=== PATIENT | male | born 1975 | race Caucasian/White ===

== ENCOUNTER 2020-12-21 13:11 | Emergency (ER) | payer OTHER ==
[2020-12-21 13:16] VITALS: BP 146/88
== END 2020-12-21 16:04 | disposition left against medical advice (07) ==
LOC: ED 13:11
DX: Z53.21 Procedure and treatment not carried out due to patient leaving prior to being seen by health care provider (principal)

== ENCOUNTER 2021-01-18 08:03 | Outpatient (CLI) | payer OTHER ==
--- NOTE | 2021-01-18 16:41 | MRI Report ---
PROCEDURE: Lumbar Spine W/O INDICATIONS: LOW BACK PAIN TECHNIQUE: Noncontrast sagittal T1 spin echo and T2 fast echo, sagittal STIR, axial T1 and T2 fast spin echo thr ough the lumbar spine. In cases with scoliosis, additional coronal T2 fast spin echo may be performe d. COMPARISON: None. FINDINGS: Image quality: Excellent. Alignment and Curvature: No plain films are available for comparison. Thus, for numbering purposes, 5 lumbar type vertebral bodies will be presumed for the current report. This should be confirmed with plain film correlation prior to any lumbar spinal intervention. There is loss of normal lumbar lordo sis. Bone Marrow: Marrow is of normal overall signal. No acute vertebral body compression fractures. Mi nimal reactive signal within the end but adjacent to the L1-L2, L2-L3, L3-L4, L4-L5, and L5-S1 interv ertebral discs. Spinal Cord: Conus medullaris terminates at the lower L1 level. Visualized cord demonstrates normal signal and size. Paraspinous Soft Tissues: No paravertebral masses. T12-L1: Normal in appearance. L1-L2: Normal in appearance. L2-L3: Minimal disc desiccation. No significant canal, nor foraminal stenosis. L3-L4: Mild disc height loss. Mild facet hypertrophy. No significant canal, nor foraminal stenosis. L4-L5: Mild disc height loss and desiccation. No significant canal, nor foraminal stenosis. L5-S1: Mild disc desiccation. No significant canal, nor foraminal stenosis. IMPRESSION: 1. Multilevel degenerative disc and facet disease, in addition to epidural lipomatosis and ligamentum flavum hypertrophy. 2. No significant canal, nor foraminal stenosis. No neural impingement. 3. Five lumbar type vertebral bodies were presumed for the purposes of the current report. Correlati on with plainfilms for numbering purposes is recommended prior to any lumbar spinal intervention. Reviewed by: Víctor Hawley MD on 01/18/2021 4:40 PM PDT Approved by: Víctor Hawley MD on 01/18/2021 4:40 PM PDT Station ID: [id number]
== END 2021-01-18 08:04 | disposition home or self-care (01) ==
LOC: DI 08:03
DX: M51.36 Other intervertebral disc degeneration, lumbar region (principal); M47.816 Spondylosis without myelopathy or radiculopathy, lumbar region; M51.37 Other intervertebral disc degeneration, lumbosacral region

== ENCOUNTER 2022-11-28 11:14 | Outpatient (CLI) | payer OTHER ==
--- NOTE | 2022-11-28 21:25 | SLEEP CARE CONSULTATION ---
Information from patient questionnaire entered by Be Hernandez. I have reviewed and concur with the information entered by Be Hernandez. This document represents the service I personally performed and the decisions made by me, Bill Willis MD, [facility]. History of Present Illness Service Date and Time: 11/28/2022 1114 Reason for Visit: New patient Chief Complaint: reports: Insomnia, Unrefreshed sleep, Snoring, Excessive daytime sleepiness, Fatigue, Frequent awakenings at night Date of Onset: 2-4YRS Usual bedtime: 8-4 Time it takes to fall asleep: 20MIN-2HRS Snores at night: Yes Observed to quit breathing while asleep: Yes Sleeps alone due to snoring: No Number of times waking at night: 1-5 Reasons for waking at night: reports: Snoring, Pain, Bathroom, Other (NOISE) Toss, Turn, or Twitch while sleeping: Yes Recalls having dreams: Yes Feels refreshed in the morning: No Morning headache: No Sleepy or fatigued during the day: Yes Ever fallen asleep while driving: No Takes day naps: Yes Dreams during day naps: No Prior sleep studies: Yes Additional HPI information: I had the pleasure of seeing Mr. Ashraf today regarding obstructive sleep apnea-hypopnea. As you know, he is a 47-year-old gentleman who was diagnosed with the sleep-disordered breathing at [facility] in [place] on 09/16/2022. The AHI was 10.6 and rolanda oxygen saturation of 87%. He did not see a sleep physician there for a follow up but was instructed to follow up with his primary care provider for treatment. The patient tells me that he normally goes to bed around 8 pm, and it takes him approximately 20 - 120 minutes to fall asleep. He has been told that he snores loudly and irregularly at night. He has also been observed to stop breathing in his sleep. He can recall waking up on the average of 1 - 5 times during the night. Most of the time he wakes up because of having to use the bathroom and pain. He has awakened occasionally because of his own snoring, but not choking, or having to gasp for air. In the morning he usually gets up out of the bed around 4 a.m. not feeling refreshed nor rested. He usually does not have a morning headache. During the day he complains of feeling sleepy and fatigued. His score on Everett Sleepiness Scale is 12 out of 24. He never has fallen asleep while driving nor has had any accident due to sleepiness. He usually does not take naps during the day. He reports having impaired concentration during the day. - Parasomnia Symptoms Ever been unable to move upon waking from sleep: Yes Walks in sleep: No Talks in sleep: No Ever acted out dreams in sleep: No Ever felt weak in the knees when startled or emotional: No Bothered by creepy, crawly, restless sensations in legs: No Problems with memory or concentration: Yes Subjective Initial Everett Sleepiness Scale score: 14 (11/28/22) Social History The patient's occupation is a ACTIVE DUTY. Patient is and lives in [place]. Have you smoked in the past 12 months: No Alcohol use: No Caffeine use: Yes Caffeine amount and frequency: 2-4 CUPS DAILY Family History Family history of sleep disordered breathing: Yes Family Hx Sleep Apnea: Mother: Snoring, Father: Snoring, Grandparent: Snoring Allergies and Home Medications Known drug allergies: No Drug allergies reviewed: Yes Home medication list reviewed: Yes Allergy and home medication list: Allergies No Known Drug Allergies Allergy (Verified 11/25/22 08:49) Review of Systems Cardiovascular: denies: high blood pressure, palpitations, chest pain, irregular heart rate or pulse, leg or foot swelling, have to sleep sitting up, other Respiratory: denies: shortness of breath, wheeze, sputum production, chronic cough, other Gastrointestinal: reports: heartburn, nausea Neurological: reports: gait or balance problems Psychiatric: denies: Attention Deficit Hyperactivity, anxiety, depression, mood disorder, claustrophobia, other Ear/Nose/Throat: denies: nasal congestion, sinus problems, nose bleeds, dry mouth/throat, hoarseness, injury to nose, tonsillectomy, wisdom teeth removed, other Endocrine: denies: thyroid disease, history of goiter, sluggishness, too hot or cold, excessive thirst, increased appetite, increased urination, unexplained weakness, other Musculoskeletal: reports: joint pain, neck pain, back pain, joint swelling Immunologic: reports: allergies to food or environment Physical Exam Vital signs obtained and entered by: BE Pollard MA Blood Pressure: 102/62 (LEFT ARM) Cuff size: regular Heart Rate: 59 O2 Saturation: 97 Height: 5 ft 11 in Weight: 192 lb 9.6 oz Body Mass Index: 26.9 BMI Classification: Overweight Neck circumference: 17.5 Mood/affect: Normal HEENT: No craniofacial malformation Nostrils: patent to airflow Turbinates: normal Septum: midline Mouth and throat: narrow oropharynx Soft palate: long Hard palate: normal Uvula: normal Uvula visualization: 50% Mallampati Class II Tongue: normal in size Tonsils: absent bilaterally Chin and jaw: normal size and position Neck: normal w/o lymphadenopathy or thyromegaly Heart: regular rate and rhythm Lungs: clear bilaterally Extremities: no edema or clubbing Neurologic: intact Impression and Plan IMPRESSION: 1. Obstructive Sleep Apnea-Hypopnea Syndrome, mild, as recently diagnosed but not yet treated. The patient appears to be symptomatic for loud snore, unrefreshed sleep, and excessive daytime sleepiness. Based on his sleep study, I will prescribe him an autoCPAP set at 5 15 cmH2O through a local durable medical supplier [employer] [employer]. Plan: 1. Prescription made for an autoCPAP, heated humidifier, and related supplies. 2. Avoid long-distance driving or when feeling sleepy. 3. Avoid alcohol, sedative and muscle relaxant around bedtime. 4. Return for follow up after one month of using the CPAP. Prescriptions: Auto CPAP (From [employer]) Follow up with Sleep Care in: 1-2 months Visit Type: In Office Time Spent with Patient (minutes): 15 Provider Statement: I spent 100% of the Face to Face Visit with the patient with greater than 50% spent counseling the patient and coordination of care.
[2022-11-28 21:27] VITALS: BP 102/62; O2SAT 97
== END 2022-11-28 11:15 | disposition home or self-care (01) ==
LOC: SC 11:14
PROVIDERS: ATTEND Internal Medicine Pulmonary Disease
DX: G47.33 Obstructive sleep apnea (adult) (pediatric) (principal); E66.3 Overweight; Z68.26 Body mass index [BMI] 26.0-26.9, adult
CPT/HCPCS: 99202; 99212